=== PATIENT | female | born 1980 | race Caucasian/White ===

== ENCOUNTER 2017-07-17 10:17 | Day surgery (SDC) | payer OTHER ==
[~2017-07-17] VITALS: Ht 167.6 cm; Wt 95.2 kg
[~2017-07-17 10:17] MED LIST: AMBIEN10 MG PO; DITROPAN XL15 MG PO; FLEXERIL5 MG PO; GARCINIA CAMBO1 EACH PO; LOVASTATIN40 MG PO; LYRICA150 MG PO; MOBIC15 MG PO; PEN-VEE K,VEET500 MG PO; PERCOCET 5/31 TABLET PO; RANITIDINE HCL300 MG PO
== END 2017-07-17 11:50 | disposition home or self-care (01) ==
LOC: PAIN 10:17 → SDC 11:00 → PAIN 11:00
DX: M47.816 Spondylosis without myelopathy or radiculopathy, lumbar region (principal); T84.9XXD Unspecified complication of internal orthopedic prosthetic device, implant and graft, subsequent encounter; M54.2 Cervicalgia; M54.9 Dorsalgia, unspecified; M25.519 Pain in unspecified shoulder; F41.9 Anxiety disorder, unspecified; R20.2 Paresthesia of skin; M62.830 Muscle spasm of back; F17.200 Nicotine dependence, unspecified, uncomplicated; Z88.8 Allergy status to other drugs, medicaments and biological substances
CPT/HCPCS: J1030; J2250; J3010; S0020

== ENCOUNTER 2017-07-24 10:16 | Day surgery (SDC) | payer OTHER ==
[~2017-07-24] VITALS: Ht 167.6 cm; Wt 95.2 kg
== END 2017-07-24 11:55 | disposition home or self-care (01) ==
LOC: PAIN 10:16 → SDC 11:00 → PAIN 11:55
DX: M47.816 Spondylosis without myelopathy or radiculopathy, lumbar region (principal); M54.9 Dorsalgia, unspecified; G89.29 Other chronic pain; M47.812 Spondylosis without myelopathy or radiculopathy, cervical region; M17.0 Bilateral primary osteoarthritis of knee; F17.210 Nicotine dependence, cigarettes, uncomplicated; Z79.891 Long term (current) use of opiate analgesic; Z86.718 Personal history of other venous thrombosis and embolism
CPT/HCPCS: J1030; J2250; J3010; S0020

== ENCOUNTER 2017-08-25 12:35 | Day surgery (SDC) | payer OTHER ==
[~2017-08-25] VITALS: Ht 167.6 cm; Wt 95.2 kg
[~2017-08-25 12:35] MED LIST changes: -AMBIEN10 MG PO; +AMBIEN5 MG PO
== END 2017-08-25 14:45 | disposition home or self-care (01) ==
LOC: PAIN 12:35 → SDC 14:00 → PAIN 14:45
DX: M47.816 Spondylosis without myelopathy or radiculopathy, lumbar region (principal); M54.5 Low back pain; G89.29 Other chronic pain; M47.812 Spondylosis without myelopathy or radiculopathy, cervical region; K21.9 Gastro-esophageal reflux disease without esophagitis; E78.5 Hyperlipidemia, unspecified; E66.3 Overweight; Z68.33 Body mass index [BMI] 33.0-33.9, adult; Z79.891 Long term (current) use of opiate analgesic; F17.200 Nicotine dependence, unspecified, uncomplicated; Z98.1 Arthrodesis status
CPT/HCPCS: J1030; J2250; J3010; S0020

== ENCOUNTER 2017-09-01 13:38 | Day surgery (SDC) | payer OTHER ==
[~2017-09-01] VITALS: Ht 167.6 cm; Wt 95.0 kg
== END 2017-09-01 14:50 | disposition home or self-care (01) ==
LOC: PAIN 13:38 → SDC 14:30 → PAIN 14:50
DX: M47.816 Spondylosis without myelopathy or radiculopathy, lumbar region (principal); M54.5 Low back pain; G89.29 Other chronic pain; M17.0 Bilateral primary osteoarthritis of knee; M47.812 Spondylosis without myelopathy or radiculopathy, cervical region; E66.3 Overweight; Z68.33 Body mass index [BMI] 33.0-33.9, adult; K21.9 Gastro-esophageal reflux disease without esophagitis; E78.5 Hyperlipidemia, unspecified; F41.8 Other specified anxiety disorders; F17.200 Nicotine dependence, unspecified, uncomplicated; Z79.891 Long term (current) use of opiate analgesic
CPT/HCPCS: J1030; J1885; J2250; J3010; S0020

== ENCOUNTER 2017-11-11 11:09 | Day surgery (SDC) | payer OTHER ==
[~2017-11-11] VITALS: Ht 167.6 cm; Wt 95.3 kg
[~2017-11-11 11:09] MED LIST changes: +MELATONIN10 M1 PO
== END 2017-11-11 12:41 | disposition home or self-care (01) ==
LOC: PAIN 11:09 → SDC 12:30 → PAIN 12:30
DX: M47.812 Spondylosis without myelopathy or radiculopathy, cervical region (principal); M54.2 Cervicalgia; G89.29 Other chronic pain; M47.816 Spondylosis without myelopathy or radiculopathy, lumbar region; M17.0 Bilateral primary osteoarthritis of knee; F17.200 Nicotine dependence, unspecified, uncomplicated
CPT/HCPCS: J1030; J2250; J3010; S0020

== ENCOUNTER 2017-11-18 11:31 | Day surgery (SDC) | payer OTHER ==
[~2017-11-18] VITALS: Ht 167.6 cm; Wt 95.3 kg
== END 2017-11-18 13:56 | disposition home or self-care (01) ==
LOC: PAIN 11:31 → SDC 12:30 → PAIN 12:30
PROC: BR141ZZ Fluoroscopy of Cervical Facet Joint(s) using Low Osmolar Contrast (ICD-10-PCS; principal; 2017-11-18)
PROC: 3E0T3TZ Introduction of Destructive Agent into Peripheral Nerves and Plexi, Percutaneous Approach (ICD-10-PCS; principal; 2017-11-18)
DX: M47.812 Spondylosis without myelopathy or radiculopathy, cervical region (principal); M54.2 Cervicalgia; G89.29 Other chronic pain; M47.816 Spondylosis without myelopathy or radiculopathy, lumbar region; K21.9 Gastro-esophageal reflux disease without esophagitis; F17.200 Nicotine dependence, unspecified, uncomplicated; Z79.891 Long term (current) use of opiate analgesic
CPT/HCPCS: J1030; J1885; J2250; J3010; S0020